=== PATIENT | male | born 1960 | race Caucasian/White ===

== ENCOUNTER 2024-04-21 12:35 | Emergency (ER) | payer MEDICARE, OTHER, SELFPAY ==
[2024-04-21 12:38] VITALS: BP 127/78
[2024-04-21 13:12] VITALS: BMI 20.8
[2024-04-21 13:23] VITALS: BP 116/83
[2024-04-21 13:34] LABS: % Basophils 0.7 % (0-2); % Eosinophils 5.2 % (0-6); % Immature Granulocytes 0.4 % (0-0.5); % Lymphocytes 22.5 % (20.5-51.1); % Monocytes 8.7 % (1.7-9.3); % Neutrophils 62.5 % (42.2-75.2); Absolute Basophils 0.1 10^3/uL (0-0.2); Absolute Eosinophils 0.4 10^3/uL (0-0.7); Absolute Lymphocytes 1.9 10^3/uL (1.2-3.4); Absolute Monocytes 0.7 10^3/uL (0.1-0.6); Absolute Neutrophils 5.3 10^3/uL (1.4-6.5); Hematocrit 39.6 % (39.0-52.0); Hemoglobin 13.9 g/dL (13.0-18.0); Mean Corp Hgb Conc. 35.1 g/dL (33.0-37.0); Mean Corpuscular Hgb 34.2 pg (27.0-31.0); Mean Corpuscular Volume 97.5 fL (80.0-94.0); Mean Platelet Volume 9.9 fL (7.4-10.4); Nucleated Red Blood Cells % 0 % (-); Platelet Count 195 10^3/uL (130-400); Red Blood Cell Count 4.06 10^6/uL (4.70-6.10); Red Cell Dist. Width 11.9 % (11.5-14.5); White Blood Cell Count 8.5 10^3/uL (4.8-10.8)
--- NOTE | 2024-04-21 13:39 | ED.MUSCINJ ---
HPI-Injury
General
Chief Complaint: Musculo-Skeletal Complaint
Source: patient
Exam Limitations: none
Time Seen by Provider: 04/21/24 13:16
History of Present Illness-Injury
Initial Injury comments:
63-year-old male HIV-positive with history of bronchiectasis and JG infection presents complaining of left scapular pain for several days that he feels when he coughs or takes deep breath. He also notes a low-grade temperature. He states his
temperatures been 99.6. He denies hemoptysis. He is on several antibiotics for his JG infection. No known injury. Pain does not radiate down the arms. No significant chest pain. No recent travel. No leg swelling or calf pain. No other
complaints at this time.
Phy Exam
Physical Exam
Physical Exam:
General: Well-appearing male no acute respiratory distress
HEENT: Normocephalic atraumatic neck is supple
Heart: Regular rate and rhythm no murmurs
Lungs: Clear no obvious wheeze or rales
Extremities: No cyanosis or edema skin: Warm no rash
Injury Course
Orders/Labs/Results
Orders:
Orders
04/21/24 13:24
CMP [Comprehensive Metabolic Panel] Urgent
Complete Blood Count/With Diff Urgent
04/21/24 13:25
COVID-19 Antigen Urgent
Source: Nasal Swab
04/21/24 13:34
CT Chest Pe Study Urgent
Comment:
Reason For Exam: left scapular painn, history of JG, bronchiectasi
Abnormal Lab Results
04/21/24
13:24
RBC 4.06 L 10^6/uL
(4.70-6.10)
MCV 97.5 H fL
(80.0-94.0)
MCH 34.2 H pg
(27.0-31.0)
Absolute Monos (auto) 0.7 H 10^3/uL
(0.1-0.6)
Glucose 154 H mg/dl
(70-99)
Total Bilirubin 1.7 H mg/dl
(0.2-1.3)
04/21/24 13:24
04/21/24 13:24
MDM/Problems Addressed
Differential Diagnosis Includes:
Left scapular pain worse with coughing and breathing. Considered PE versus pneumonia versus musculoskeletal strain. Patient has other medical issues affecting today's care including history of HIV, bronchiectasis, Mycobacterium infection. Will
check labs. PE study ordered secondary to discomfort.
*Critical Care Note
Total Time (30-74mins, 75-104mins- exclusive of procedures): Not Applicable
Update Note
Update Note:
PE study negative for pulmonary embolism. There is groundglass appearance to the right hilum. Patient does have history of bronchiectasis and JG. He is nontoxic with normal white count afebrile here. Would not suggest any acute change. Patient
reassured he is stable for discharge
ED Attending Note
-
Portions of this chart may have been created with voice recognition software.� Occasional wrong word or��sound alike� substitutions may have occurred due to the inherent limitations of voice recognition software.
Discharge Plan
Departure
Patient Disposition: Home (Routine Discharge)
Date of Disposition: 04/21/24
Time of Disposition: 16:29
Patient with high blood pressure during this ER visit?: No
Discharge Problem:
Pain in scapula
Instructions: Muscle and Bone Pain (DC)
Referrals:
Carmen-Keila Maki MD [Family Provider] -
Activity Restrictions/Additional Instructions:
Continue current medication regimen. Return if worse otherwise follow-up with your treating physicians
Interventions
Interventions:
*Risk Screen - Suicide Last Done: 04/21/24 13:12
*General Assessment Last Done: 04/21/24 13:12
*Neglect/Abuse Screening Last Done: 04/21/24 13:12
ED- Fall Risk Assessment Last Done: 04/21/24 13:35
*ED COVID-19 Vaccine History Last Done: 04/21/24 13:12
ED-Musculoskeletal Assessment Last Done: 04/21/24 13:34
Discharge Date and Time
Print Language: TURKMEN
[2024-04-21 13:51] LABS: COVID-19 Antigen Negative (Negative)
[2024-04-21 13:53] LABS: ALT (SGPT) 28 U/L (0-50); AST (SGOT) 31 U/L (17-59); Albumin 4.6 g/dl (3.5-5.0); Alkaline Phosphatase 86 U/L (38-126); Blood Urea Nitrogen 20 mg/dl (9-20); Calcium 9.3 mg/dl (8.4-10.2); Carbon Dioxide 27 mmol/L (22-30); Chloride 103 mmol/L (98-107); Estimated Creatinine Clearance 83 ml/min; Glucose 154 mg/dl (70-99); Sodium 139 mmol/L (135-145); Total Bilirubin 1.7 mg/dl (0.2-1.3); Total Protein 7.4 g/dl (6.3-8.2); eGFR > 60.00
[2024-04-21 14:00] VITALS: BP 122/82
[2024-04-21 16:28] VITALS: BP 115/77
== END 2024-04-21 16:44 | disposition home or self-care (01) ==
LOC: EMR 12:35
PROVIDERS: Physician Assistant; EMERGENCY PHYSICIAN Emergency Medicine; FAMILY PHYSICIAN Family Medicine
DX: M25.512 Pain in left shoulder (principal); Z21 Asymptomatic human immunodeficiency virus [HIV] infection status
CPT/HCPCS: 99284; 71275; 80053; 85025; 87811; Q9967

== ENCOUNTER 2024-07-07 12:28 | Observation (INO) | payer MEDICARE, SELFPAY ==
[2024-07-07] VITALS (8 sets, daily range): BP systolic 93–130; BP diastolic 59–75; BMI 20.9; BMI 20.4
--- NOTE | 2024-07-07 09:00 | ED.GENMED ---
History of Present Illness
General
Chief Complaint: Back Pain
Source: patient
Exam Limitations: none
Time Seen by Provider: 07/07/24 08:46
Nursing documentation reviewed up to this point in time: agreed with
History of Present Illness
History of Present Illness:
63 y/o M
h/o HIV on therapy CD4>400, VL undetectable
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
bronchiectasis
kidney stones
here with R sided back pain nonradiating worse with changing position x 3 dyas
thought it was muscular
taking motrin 200 mg with some mild temporary relief
has felt warm and then had chills overnight and took temp and was 102 thi smorning
no tylenol taken
hasn't had a cough worse than usual but hasn't been able to cough noramlly because of the pain
he does have chornic cough from bronchiectasis
all of his specialists, pulm, ID are in [place]
he has not had cp, sob, abdominal pain, urinary symptoms, diarrhea, nausea, vomiting
Phy Exam
Physical Exam
Physical Exam:
GENERAL: Alert thin, emaciated
EYE: pupils equal and reactive
NECK: Supple
ENT: o/p clr, mmm.
CARDIAC: Mild tachycardia, no murmur
LUNGS: Clear breath sounds bilaterally, no acute respiratory distress, no wheezes/rales/rhonchi
Back: No rash, no specific tenderness to his scapula or CVA region patient has very significant pain with movement of his trunk/back specifically flexion and extension, negative straight leg raise
ABDOMEN: Soft, without focal tenderness, no r/g, no cvat, normal bowel sounds
NEUROLOGICAL: Alert and oriented, no focal neuro deficits
SKIN: Warm and dry, skin intact.
MUSCULOSKELETAL: No edema, well perfused. neg randy's sign
PSYCH: Normal and appropriate interaction.
Course
Orders/Labs/Results
Orders:
Orders
10/03/24 08:58
0.9% Sodium Chloride 1000 ml [Nss] 1,000 ml IV BOLUS
Acetaminophen [Tylenol] 650 mg PO NOW STA
HYDROmorphone [Dilaudid] 0.5 mg IV NOW STA
07/07/24 08:59
CR Chest - 2 Views Urgent
Comment: bronchiectasis; JG
Reason For Exam: R sided back pain, fever; HIV
07/07/24 10:05
Complete Blood Count/With Diff Urgent
Comprehensive Metabolic Panel Urgent
Lactic Acid Q4H
Comment: CANCEL 2nd LACTIC ACID IF 1st LACTIC ACID IS LESS THAN 2
Lipase Urgent
Urinalysis Reflex To Culture Urgent
Date Specimen was Collected: 07/07/24
Time Specimen was Collected: 10:02
Urine Microscopic Reflex Cult Urgent
Blood Culture Urgent
SAUL Source: Blood/Venous
Specimen Description:
Blood Culture Urgent
SAUL Source: Blood/Venous
Specimen Description:
07/07/24 10:52
CT Chest Pe Study Urgent
Comment:
Reason For Exam: R back pain with breathing, fever, hIV
07/07/24 10:53
Add On- LAB Urgent
Tests Added?: cd4 count
07/07/24 11:10
Influenza A+B Rapid Molecular Urgent
SAUL Source: Nasal Swab
Specimen Description:
07/07/24 11:11
COVID-19 Antigen Urgent
Source: Nasal Swab
07/07/24 11:31
Piperacillin/Tazo 4.5 Gram [Zosyn] 4.5 gram in 100 ml IV NOW
07/07/24 11:44
Vancomycin [Vancocin] 1,500 mg 0.9% Sodium Chloride [Nss] 20 ml 0.9% Sodium Chloride 250 ml [Nss] 250 ml IV NOW
07/07/24 12:15
Admit/Transfer Patient As Directed
Co-Sign Provider:
Level of Care: Observation services
Assign to:: Medical/Surgical
Physician / Group: clayton santiago
Diagnosis: cap
Reason for Hospitalization: pna in immunocompromised
Expected length of stay greater than two midnights?: No
ELOS- Estimated Length of Stay in days: 1
I certify the patient meets the requirements for IP care: No
07/07/24 12:16
PRN Pain Medication Management As Directed
May give lesser potent ordered pain med per pt: Yes
preference::
Protocol:: Medication orders for pain may be administered in a
manner that supports deferring to patient preference
when the pt is:
- Requesting an ordered lesser potent pain medication.
Least to most potent pain medications are defined
as: acetaminophen < NSAID < tramadol < opioids
(morphine, oxycodone, hydromorphone).
- Requesting a lesser dose of the same medication IF
ORDERED.
- Requesting a less intrusive route of administration
if both routes are prescribed by the provider (PO <
IV).
07/07/24 12:55
CD4 Leukocyte Marker Profile [S] Routine
Abnormal Lab Results
07/07/24
10:05
RBC 3.45 L 10^6/uL
(4.70-6.10)
Hgb 11.9 L g/dL
(13.0-18.0)
Hct 33.8 L %
(39.0-52.0)
MCV 98.0 H fL
(80.0-94.0)
MCH 34.5 H pg
(27.0-31.0)
Absolute Neuts (auto) 7.4 H 10^3/uL
(1.4-6.5)
Neutrophils % 78.2 H %
(42.2-75.2)
Lymphocytes % 13.1 L %
(20.5-51.1)
Glucose 138 H mg/dl
(70-99)
Total Bilirubin 1.9 H mg/dl
(0.2-1.3)
Urine Ketones Trace A
(Negative)
Urine Bilirubin 1+ A
(Negative)
Urine Urobilinogen 2+ A
(Neg - 1+)
Leukocyte Esterase Rfl Trace A
(Negative)
Urine Bacteria (Reflex) Few A
(Negative)
07/07/24 10:05
07/07/24 10:05
Vital Signs
Initial and Last Documented VS:
Initial Vital Signs
Temp Pulse Resp BP Pulse Ox
101.1 F H 107 18 130/75 98
07/07/24 08:43 07/07/24 08:43 07/07/24 08:43 07/07/24 08:43 07/07/24 08:43
Last Documented Vital Signs
Temp Pulse Resp BP Pulse Ox
101.1 F H 107 18 114/70 94
07/07/24 08:43 07/07/24 08:43 07/07/24 08:43 07/07/24 10:19 07/07/24 10:19
MDM/Problems Addressed
MDM/Problems Addressed:
63 y/o M
HIV pos on HAART, cd4 last 400s; managed by ID in [place]
JG on abx x 1.5 years
Bronchiectasis
4 days R back pain worse with movement and coughing; fever since last night 102 this am at home
no inc cough from baselin but he isn't able to cough because of pain
he def does splint slightly but is not tachypneic or hypoxic; normal bp
wbc with left shift, urine bili but not infected; mild t bili elevation, lactic normal
cxr looks like multifocal pna; with his hiv and his pleuritic pain, i was getting CT scan with contrast, r/o PE/abscess;
covid and flu neg
broad spectrum abx due to HIV/bronchiectasis
admit
PE study neg
*Critical Care Note
Total Time (30-74mins, 75-104mins- exclusive of procedures): Not Applicable
ED Attending Note
-
Portions of this chart may have been created with voice recognition software.� Occasional wrong word or��sound alike� substitutions may have occurred due to the inherent limitations of voice recognition software.
Discharge Plan
Departure
Patient Disposition: Admit
Date of Disposition: 07/07/24
Time of Disposition: 10:53
Admit to: Med/Surg
Presentation/result/management discussed w/ accepting MD/DO: Hospitalist
Condition: Fair
Covid-19: Not Applicable
Discharge Problem:
Multifocal pneumonia, HIV positive
Interventions
Interventions:
*Risk Screen - Suicide Last Done: 07/07/24 08:43
*General Assessment Last Done: 07/07/24 10:15
*Neglect/Abuse Screening Last Done: 07/07/24 08:43
ED- Fall Risk Assessment Last Done: 07/07/24 10:15
ED-Musculoskeletal Assessment Last Done: 07/07/24 10:15
[2024-07-07] MEDS: TYLENOL 650 MG PO (09:23)
[2024-07-07] MEDS: DILAUDID 0.5 MG IV ×2 (09:40→17:57)
[2024-07-07] MEDS: NSS 1000 IV (09:41)
[2024-07-07 10:21] LABS: % Basophils 0.4 % (0-2); % Eosinophils 1.3 % (0-6); % Immature Granulocytes 0.3 % (0-0.5); % Lymphocytes 13.1 % (20.5-51.1); % Monocytes 6.7 % (1.7-9.3); % Neutrophils 78.2 % (42.2-75.2); Absolute Eosinophils 0.1 10^3/uL (0-0.7); Absolute Lymphocytes 1.2 10^3/uL (1.2-3.4); Absolute Monocytes 0.6 10^3/uL (0.1-0.6); Absolute Neutrophils 7.4 10^3/uL (1.4-6.5); Hematocrit 33.8 % (39.0-52.0); Hemoglobin 11.9 g/dL (13.0-18.0); Mean Corp Hgb Conc. 35.2 g/dL (33.0-37.0); Mean Corpuscular Hgb 34.5 pg (27.0-31.0); Mean Platelet Volume 9.4 fL (7.4-10.4); Nucleated Red Blood Cells % 0 % (-); Platelet Count 198 10^3/uL (130-400); Red Blood Cell Count 3.45 10^6/uL (4.70-6.10); Red Cell Dist. Width 11.8 % (11.5-14.5); White Blood Cell Count 9.4 10^3/uL (4.8-10.8)
[2024-07-07 10:24] LABS: Urine Albumin Trace (Neg - Trace); Urine Bilirubin 1+ (Negative); Urine Character Clear (Clear); Urine Glucose Negative (Negative); Urine Ketone Trace (Negative); Urine Leukocyte Trace (Negative); Urine Nitrite Negative (Negative); Urine Occult Blood Negative (Negative); Urine Specific Gravity 1.015 (<1.030); Urine Urobilinogen 2+ (Neg - 1+)
[2024-07-07 10:28] LABS: Urine Color Orange
[2024-07-07 10:41] LABS: ALT (SGPT) 29 U/L (0-50); AST (SGOT) 25 U/L (17-59); Albumin 3.9 g/dl (3.5-5.0); Alkaline Phosphatase 97 U/L (38-126); Blood Urea Nitrogen 11 mg/dl (9-20); Calcium 8.8 mg/dl (8.4-10.2); Carbon Dioxide 22 mmol/L (22-30); Chloride 102 mmol/L (98-107); Estimated Creatinine Clearance 74 ml/min; Glucose 138 mg/dl (70-99); Lipase 105 U/L (23-300); Sodium 139 mmol/L (135-145); Total Bilirubin 1.9 mg/dl (0.2-1.3); Total Protein 6.7 g/dl (6.3-8.2); eGFR > 60.00
[2024-07-07 10:56] LABS: Urine Mucus Few; Urine Red Blood Cell 0-2 /HPF (0-2); Urine White Cell 0-2 /HPF (0-5)
[2024-07-07 10:59] LABS: Urine Bacteria Few (Negative); Urine Hyaline Cast 0-2 /LPF (0-2); Urine Squamous Cell 0-2 /LPF (Few)
[2024-07-07 11:33] LABS: COVID-19 Antigen Negative (Negative)
[2024-07-07] MEDS: ZOSYN 100 IV (11:47)
--- NOTE | 2024-07-07 13:01 | CON.ID ---
Consultation
-
Date/Time Consultation Requested: 07/07/2024 1127
Date/Time Consultation Performed: 07/07/2024 1230
Requesting Provider: Dr. Fong
Performing Provider: Dr. De Anda
Reason for Consultation: Pneumonia
Chief Complaint / Past History
History of Present Illness
Dell Carias is a 63-year-old man being evaluated at the request of Dr. Fong in regards to pneumonia. History is obtained from chart review, along with patient interview. Additional history was obtained from the patient's who was present
at the bedside.
The patient has an underlying history of HIV (VL undetectable, CD4 >400; Gracie/Kaylin), bronchiectasis and JG, for which he has been on treatment for the past 18 months (Azithromycin/ETH/RIF).
He reports he was in his usual state of health until earlier this week when he began to develop some right sided posterior thorax pain. He noted that it became worse with movement, like a 'squeezing' feeling. He reports trying Motrin, but received
little relief. Last p.m., he developed fevers to 102.7 and presented to the emergency room for further evaluation.
Workup in the ER did not reveal leukocytosis, but he did have a left shift. A chest x-ray showed a right lower lobe infiltrate, and CT imaging showed nodular consolidations surrounding groundglass opacities suggestive of multifocal pneumonia.
Infectious Diseases is asked to comment upon further antimicrobial therapy.
At this point in time he notes a little sputum production. He denies any nausea or vomiting. He denies any headache or abdominal pain. There has been no history of travel. There are no pets in the house. He reports that his partner had COVID in
mid June. The patient had COVID testing at that point in time which remained negative.
The patient has an underlying history of JG and has been treated by his Infectious Diseases provider for the past 18 months or so. He reports that he has had recent negative sputum cultures. He has been on Azithromycin, ethambutol along with
rifampin. He is tolerating the medications without issue.
In regards to HIV, he reports that he was diagnosed in 1988. He has been on Tivicay and Descovy for quite some time and maintains an undetectable viral load and a CD4 count in the 450 range. He is routinely followed by Dr. Jesus Alberto Whitman in [facility]
[place] ([phone])
Past History
Additional Past Medical History:
HIV
Adrenal insufficiency
Asthma
JG
Bronchiectasis
Remote Hx (L) eye CMV
Additional Past Surgical History:
Left wrist surgery
Allergy History:
Sulfa (Sulfonamide Antibiotics) Allergy (Verified 07/07/24 08:45)
Rash
Medications Reviewed: Yes
Current Antibiotics:
Zosyn
Vancomycin (not given yet)
OP meds:
Tivicay/Descovy
Azithromycin/ethambutol/rifampin
Social History
Tobacco: Non-Smoker
Alcohol: Occasional
Drug: None
Personal:
Living: With Family
Employment: Retired
Family History
Family History: Not Pertinent
Review of Systems
Vital Signs
Temp Pulse Resp BP Pulse Ox
101.1 F H 107 18 114/70 94
07/07/24 08:43 07/07/24 08:43 07/07/24 08:43 07/07/24 10:19 07/07/24 10:19
Physical Exam
Physical Exam
Constitutional: No Acute Distress, Comfortable, Chronically Ill and Non-toxic
Head: Normocephalic
Eyes: Pupils Equal, Pupils Round, No Conjunctival Hemorrhage and Sclera Anicteric
Oral: No Thrush and No Ulcers
Cardiovascular: Regular Rate and S1/S2; Negative S3/S4
Pulmonary: Clear; Negative Wheezes, Rales or Rhonchi
Gastrointestinal: Soft, Non Tender, Non Distended, Normal Bowel Sounds, No Rebound and No Guarding
Extremities: Negative Edema, Cyanosis or Erythema
Musculoskeletal: Negative Joint Swelling or Joint Effusion
Skin: Warm and Dry; Negative Rash or Jaundice
Neurological: Awake and Alert
Psychological: Calm
Lab / Diagnostic Study Results
07/07/24 10:05
07/07/24 10:05
Abs Immat Gran (auto) 0.0 10^3/uL (0-0.05) 07/07/24 10:05
Absolute Neuts (auto) 7.4 10^3/uL (1.4-6.5) H 07/07/24 10:05
Absolute Lymphs (auto) 1.2 10^3/uL (1.2-3.4) 07/07/24 10:05
Absolute Monos (auto) 0.6 10^3/uL (0.1-0.6) 07/07/24 10:05
Absolute Basos (auto) 0.0 10^3/uL (0-0.2) 07/07/24 10:05
Immature Gran % 0.3 % (0-0.5) 07/07/24 10:05
Neutrophils % 78.2 % (42.2-75.2) H 07/07/24 10:05
Lymphocytes % 13.1 % (20.5-51.1) L 07/07/24 10:05
Monocytes % 6.7 % (1.7-9.3) 07/07/24 10:05
Eosinophils % 1.3 % (0-6) 07/07/24 10:05
Basophils % 0.4 % (0-2) 07/07/24 10:05
Lactic Acid Cancelled 07/07/24 13:00
Ur Squamous Epith Cells 0-2 /LPF (Few) 07/07/24 10:05
Microbiology Results
Micro:
07/07/24 11:10 Influenza Types A & B (ALYCIA) - Final
Nasal Swab Negative for Influenza A & B, NAAT
Negative results must be combined with clinical observations
and patient history.
Nucleic Acid Amplification test (NAAT)performed on the
[employer] ID NOW platform.
07/07/24 10:05 Blood Culture - Pending
Blood/Venous
07/07/24 10:05 Blood Culture - Pending
Blood/Venous
Imaging:
07/07/2024 CTA chest: No filling defects in the central pulmonary arteries to suggest PE. Nodular consolidations with surrounding groundglass opacities involving bilateral lower lobes and right upper lobe consistent with multifocal pneumonia.
Borderline enlarged right hilar lymph nodes; likely reactive. Please see full dictation for additional detail. Film personally viewed.
07/07/2024 CXR (2 view): Airspace opacities within the right lower lobe and lingula, likely multifocal pneumonia.
Assessment / Plan
Back pain (pleuritic)
Fever
Suspected PNA
- possible post-viral given history
Bronchiectasis
JG; currently on 3 drug therapy
HIV; stable on current antiretroviral therapy
Hx adrenal insufficiency
Asthma
Recommendations:
Continue with Zosyn for the present.
Hold on Vanco for now. Check screening MRSA PCR; if positive will initiate vancomycin. If negative, low likelihood of MRSA as an etiology.
Continue current antiretroviral therapy.
Follow clinical exam.
Follow for improvement / change in pleuritic chest discomfort.
Continue current 3 drug therapy for underlying JG.
Check sputum culture.
Follow white count and temperature curve.
I have reached out to pt's ID physician and given my contact info.
Care Review
Plan reviewed with: Physician (Hospitalist) and Other Provider (ER)
--- NOTE | 2024-07-07 13:44 | HPS.HSE ---
Family Physician
-
Family Physician: * NONE
Chief Complaint
-
back paun - right thoracic
History of Present Illness
63 male history of HIV CD4 count greater than 400, bronchiectasis and JG, adrenal insufficiency, asthma, CMV retinitis left eye, presenting with severe back pain/right-sided posterior back pain worse with movement, taking a deep breath coughing,
described as a squeezing feeling, little relief with Motrin, fever 102.7.
States his partner had COVID on , he did a COVID test and was negative and was wondering if this could be something of that.
Past medical history HIV adrenal insufficiency asthma JG bronchiectasis CMV retinitis left eye
Past surgical history left wrist surgery
Allergy history sulfa
Non-smoker drinks alcohol occasionally no drug use lives with family
Medical History
Past Medical History
Past Medical History: Reports Other
Additional Past Medical History:
hiv
Past Surgical History: Reports Orthopedic
Social History
Tobacco: Non-smoker
Family History
Family History: Other
Allergies / Home Medications
Allergies reflects when Allergies were last updated in [facility].
Home Medications with original date entered in [facility]
Allergy/Medication List:
Allergies
Allergy/AdvReac Type Severity Reaction Status Date / Time
Sulfa (Sulfonamide Allergy Rash Verified 07/07/24 08:45
Antibiotics)
Home Medications
Lactobac no.2-Bifidobac no.1-S. thermo 112.5 billion cell capsule (Visbiome) 1 cap PO QPM 07/07/24
ascorbic acid (vitamin C) 500 mg tablet (Vitamin C) 500 mg PO DAILY 07/07/24
azithromycin 500 mg tablet 500 mg PO HS 07/07/24
dolutegravir 50 mg tablet (Tivicay) 50 mg PO BID 07/07/24
emtricitabine 200 mg-tenofovir alafenamide fumarate 25 mg tablet (Descovy) 1 tab PO QPM 07/07/24
ethambutol 400 mg tablet 1,000 mg PO DAILY 07/07/24
evening primrose oil 500 mg capsule 500 mg PO QPM 07/07/24
ezetimibe 10 mg tablet (Zetia) 10 mg PO QPM 07/07/24
finasteride 1 mg tablet 1 mg PO QPM 07/07/24
fluticasone 250 mcg-salmeterol 50 mcg/dose blistr powdr for inhalation (Advair Diskus) 1 inh inhalation R BID 07/07/24
garlic 400 mg tablet 400 mg PO QPM 07/07/24
glucosamine sulf dipot chlr,msm,chond 550 mg-C 30 mg-moses 1 mg capsule (Glucosamine Chondroitin) 1 cap PO MOWEFR 07/07/24
hydrocortisone 5 mg tablet 5 mg PO QPM 07/07/24
hydrocortisone 5 mg tablet 15 mg PO DAILY 07/07/24
ibuprofen 200 mg tablet (Advil) 200 mg PO Q6HPRN PRN mild pain 07/07/24
milk thistle 175 mg tablet 175 mg PO HS 07/07/24
oregano oil 1,500 mg capsule 1,500 mg PO QPM 07/07/24
rifampin 300 mg capsule 300 mg PO QPM 07/07/24
turmeric 400 mg capsule 400 mg PO DAILY 07/07/24
vitamin B complex 1 tab PO QPM 07/07/24
vitamin E 268 mg (400 unit) capsule 268 mg PO HS 07/07/24
vitamin K2 100 mcg capsule 100 mcg PO HS 07/07/24
Review of Systems
-
A 12 point ROS was completed and negative except as noted: No
Physical Exam
Vital Signs
Vital Signs
Temp Pulse Resp BP Pulse Ox
101.1 F H 77 23 103/63 95
07/07/24 08:43 07/07/24 13:15 07/07/24 13:15 07/07/24 13:03 07/07/24 13:15
Physical Exam
General: No Apparent Distress and Comfortable
Laboratory Results
-
07/07/24 10:05
07/07/24 10:05
Laboratory Results
Lactic Acid Cancelled 07/07/24 13:00
Total Bilirubin 1.9 mg/dl (0.2-1.3) H 07/07/24 10:05
AST 25 U/L (17-59) 07/07/24 10:05
ALT 29 U/L (0-50) 07/07/24 10:05
Alkaline Phosphatase 97 U/L (38-126) 07/07/24 10:05
Lipase 105 U/L (23-300) 07/07/24 10:05
Impression/Plan
-
Physical exam
NAD, resting comfortably in bed, nontoxic, chronically ill-appearing
Scleral anicteric
Moist mucous membranes
No JVD
CTA bilateral
Normal S1-S2 no murmurs
Soft nontender nondistended bowel sounds active
No peripheral pitting edema
Moves extremities spontaneously
AAOx3
Assessment and plan
Pneumonia�CAP versus postviral
-Broad-spectrum antibiotics
-Legionella strep pneumo sputum culture blood culture
-Maintain SpO2 greater than 90%
-Reported CD4 greater than 400 therefore no indication to cover for opportunistic infections as CD4 count is not less than 200
Pleuritic chest discomfort
As back pain, worse with breathing and coughing movement, right-sided
Can give lidocaine patch however would expect as infection clears for this to improve
Bronchiectasis
JG
Continue 3 drug therapy
HIV
Without evidence of opportunistic infection especially if CD4 count greater than 200
Continue HAART therapy
Adrenal insufficiency history
Continue hydroxy cortisone ampm dosage
If decompensates may need to provide stress dose steroids
Asthma
Continue MDIs
[2024-07-07] MEDS: LOVENOX 30 MG SC (17:54)
[2024-07-07] MEDS: VISBIOME 1 CAP PO (17:55)
[2024-07-07] MEDS: RIFADIN 300 MG PO (17:55)
[2024-07-07] MEDS: ZETIA 10 MG PO (17:55)
[2024-07-07] MEDS: B COMPLEX w/VITAMIN C 1 CAPLET PO (17:55)
[2024-07-07] MEDS: HYDROCORTONE/CORTEF 10 MG PO (17:55)
[2024-07-07] MEDS: NON-FORMULARY ITEM 1 TABLET PO (17:56)
[2024-07-07] MEDS: ADVAIR HFA 115/21 MCG INHALER 2 PUFF INH (19:29)
[2024-07-07] MEDS: TIVICAY 50 MG PO (20:41)
[2024-07-08 07:17] VITALS: BP 114/48
[2024-07-08] MEDS: ADVAIR HFA 115/21 MCG INHALER 2 PUFF INH (07:46)
[2024-07-08] MEDS: HYDROCORTONE/CORTEF 10 MG PO (08:10)
[2024-07-08] MEDS: MYAMBUTOL 1000 MG PO (08:10)
[2024-07-08] MEDS: TIVICAY 50 MG PO (08:14)
[2024-07-08] MEDS: DILAUDID 0.5 MG IV ×2 (08:17→12:18)
--- NOTE | 2024-07-08 09:54 | W.PN.HOSP.TC ---
Today's Communication/Plan
-
.
Assessment / Plan
Assessment / Plan
Physical exam
NAD, resting comfortably in bed, nontoxic, chronically ill-appearing
Scleral anicteric
Moist mucous membranes
No JVD
CTA bilateral
Normal S1-S2 no murmurs
Soft nontender nondistended bowel sounds active
No peripheral pitting edema
Moves extremities spontaneously
AAOx3
Assessment and plan
Pneumonia�CAP versus postviral
Discussed with infectious disease agree with discharge on cefdinir 300 mg twice a day x 7 days
Pleuritic chest discomfort
As back pain, worse with breathing and coughing movement, right-sided
Can give lidocaine patch however would expect as infection clears for this to improve
Bronchiectasis
JG
Continue 3 drug therapy
HIV
Without evidence of opportunistic infection especially if CD4 count greater than 200
Continue HAART therapy
Adrenal insufficiency history
Continue hydroxy cortisone ampm dosage
If decompensates may need to provide stress dose steroids
Asthma
Continue MDIs
Will need outpatient infectious disease follow-up along with PCP follow-up
Anticipated Discharge: Today
Subjective/Interval History
-
Date of Service: July 08, 2024
Seen and examined. No new complaints. No acute overnight events.
Continues to have some back pain however improved. Understands follow-up resolved or go away completely until his pneumonia resolves.
Objective Data
-
Vital Signs:
Vital Signs
Temp Pulse Resp BP Pulse Ox
98.3 F 88 20 114/48 92
07/08/24 07:17 07/08/24 07:45 07/08/24 07:45 07/08/24 07:17 07/08/24 07:17
I&O
07/07/24 07/08/24 07/09/24
06:59 06:59 06:59
Intake Total 120 / 120
Balance 120 / 120
--- NOTE | 2024-07-08 10:03 | W.DCSUMMARY ---
Discharge Summary
Discharge Data
Date of Admission: 07/07/24
Date of Discharge: 07/08/24
-
Pending Results: No
Hospital Course
63 M History of HIV CD4 count greater than 400, bronchiectasis and JG, adrenal insufficiency, asthma, CMV retinitis left eye. Presented with chest discomfort/back discomfort worse with breathing. Concern for multifocal pneumonia. Treated with IV
antibiotics. Evaluated by infectious diseases recommended continuation of antibiotics. Discharged home with cefdinir 300mg BID x7days. Outpatient follow up with infectious diseases and PCP
Discharge Plan
-
Patient Disposition: Home (Routine Discharge)
Discharge Diagnosis/Procedures: Multifocal pna
History of HIV CD4 count greater than 400, bronchiectasis and JG, adrenal insufficiency, asthma, CMV retinitis left eye,
Condition: Good
Diet: As tolerated
Activity Restrictions/Additional Instructions:
Presented with chest discomfort/back discomfort worse with breathing. Concern for multifocal pneumonia. Treated with IV antibiotics. Evaluated by infectious diseases recommended continuation of antibiotics. Discharged home with cefdinir 300mg
BID x7days. Outpatient follow up with infectious diseases and PCP
Referrals:
NONE,* [Family Provider] -
Prescriptions:
New
cefdinir 300 mg capsule
300 mg PO BID 7 Days Qty: 14 0RF
Continued
hydrocortisone 5 mg Tablet
5 mg PO QPM
fluticasone propion-salmeterol [Advair Diskus] 250-50 mcg/dose Blister With Device
1 inh INHALATION R BID
rifampin 300 mg Capsule
300 mg PO QPM
ezetimibe [Zetia] 10 mg Tablet
10 mg PO QPM
Tivicay 50 mg Tablet
50 mg PO BID
hydrocortisone 5 mg Tablet
15 mg PO DAILY
evening primrose oil 500 mg Capsule
500 mg PO QPM
milk thistle 175 mg Tablet
175 mg PO HS
ascorbic acid (vitamin C) [Vitamin C] 500 mg Tablet
500 mg PO DAILY
ethambutol 400 mg Tablet
1,000 mg PO DAILY
ibuprofen [Advil] 200 mg Tablet
200 mg PO Q6HPRN PRN (Reason: mild pain)
vitamin B complex Tablet
1 tab PO QPM
vitamin E 268 mg (400 unit) Capsule
268 mg PO HS
finasteride 1 mg Tablet
1 mg PO QPM
garlic 400 mg Tablet
400 mg PO QPM
azithromycin 500 mg Tablet
500 mg PO HS
Visbiome 112.5 billion cell Capsule
1 cap PO QPM
oregano oil 1,500 mg Capsule
1,500 mg PO QPM
vitamin K2 100 mcg Capsule
100 mcg PO HS
Descovy 200-25 mg Tablet
1 tab PO QPM
turmeric 400 mg Capsule
400 mg PO DAILY
Glucosamine Chondroitin 550-30-1 mg Capsule
1 cap PO MOWEFR
Discharge Orders:
Discharge Patient (As Directed); Ordered 07/08/24
Ordered By: Jc George
Discharge Date and Time
Print Language: KOREAN
[2024-07-08 12:03] VITALS: BP 125/73
--- NOTE | 2024-07-08 12:46 | PTCARENOTE ---
Pt discharged to home, unable to get flu shot on DC. Dr wants him to finish his course of PO abx.
[2024-07-08 19:17] LABS: CD4 % of Cells Analyzed 26 % (35-68); CD4 Absolute Count 445 cells/uL (490-1600)
== END 2024-07-08 12:56 | disposition home or self-care (01) ==
LOC: 3 WEST ACU 12:28
PROVIDERS: Physician Assistant; ADMITTING PHYSICIAN Hospitalist; EMERGENCY PHYSICIAN Emergency Medicine; OTHER PHYSICIAN Internal Medicine Infectious Disease
DX: J18.8 Other pneumonia, unspecified organism (principal); M54.9 Dorsalgia, unspecified; J47.0 Bronchiectasis with acute lower respiratory infection; Z21 Asymptomatic human immunodeficiency virus [HIV] infection status; E27.40 Unspecified adrenocortical insufficiency; J45.909 Unspecified asthma, uncomplicated; I70.0 Atherosclerosis of aorta; Z87.442 Personal history of urinary calculi; Z88.2 Allergy status to sulfonamides; Z11.52 Encounter for screening for COVID-19
CPT/HCPCS: 71046; 71275; 80053; 81003; 81015; 83605; 83690; 85025; 86361; 87040; 87502; 87641; 87811; 94640; 96361; 96365; 96375; 99285; G0378; Q9967

== ENCOUNTER 2025-07-22 10:47 | Emergency (ER) | payer MEDICARE, OTHER, SELFPAY ==
[2025-07-22 10:50] VITALS: BP 131/64
--- NOTE | 2025-07-22 12:11 | ED.GENMED ---
History of Present Illness
General
Chief Complaint: Skin Problem
Source: patient
Time Seen by Provider: 07/22/25 11:33
History of Present Illness
History of Present Illness:
Note:
CHIEF COMPLAINT(S)
Swollen, throbbing, and red finger after recent renovation work.
HISTORY OF PRESENT ILLNESS
The patient is a 64-year-old male who presented with swelling, redness, and throbbing pain of the finger, appearing the day after he performed kitchen renovations last week. The patient described the discomfort as most intense at the nail bed,
particularly when pressure is applied. The patient suspects cellulitis but reports no visible puncture wounds initially. Upon examination, there is visible pus associated with a paronychia, suggesting a superficial infection likely with cuticle
involvement but no signs of deeper infection, as the pad of the finger is not tender.
The patient does not report having engaged in nail-biting behavior. The plan includes numbing the area, attempting to drain the pus, and starting antibiotics. The patient is advised to perform regular warm soaks, hourly if possible, to enhance blood
flow and aid in healing. The patient also inquired about using iodine for cleansing, which was advised to be diluted to avoid skin irritation.
PAST MEDICAL AND SURGICAL HISTORY
- HIV
CHRONIC MEDICAL CONDITIONS SIGNIFICANTLY AFFECTING CARE
The patient has a history of HIV.
MEDICATIONS
- Tivicay (dolutegravir) and Descovy (emtricitabine/tenofovir alafenamide) for HIV management. The patient reports stable CD4 counts between 400-500 and minimal viral load.
REVIEW OF SYSTEMS
- Skin: Redness, swelling, and throbbing of the finger, particularly around the nail bed.
PHYSICAL EXAM
General: Alert, no acute distress.
Skin: Warm, dry. Swelling and redness noted around the paronychia of the left digit, with no drainage observed. Normal capillary refill.
Head: Normocephalic, atraumatic.
Neck: Supple, trachea midline.
Eye, Ears, Nose, Mouth, and Throat: Oral mucosa moist.
Cardiovascular: Normal peripheral perfusion. No edema.
Respiratory: Respirations are non-labored.
Gastrointestinal: Abdomen non-distended.
Back: Normal range of motion, Normal alignment.
Musculoskeletal: Normal range of motion, normal strength. Tenderness noted to the paronychial area of the left finger, with mild surrounding swelling and redness.
Neurological: Alert and oriented to person, place, time, and situation. No focal neurological deficit observed.
Psychiatric: Cooperative, appropriate mood & affect.
PLAN
- Proceed with numbing of the affected area and attempt to incise for drainage of the purulent material.
- Start antibiotics post-procedure.
- Instruct the patient to perform warm soaks hourly for blood circulation.
- Consider diluting iodine for cleansing to prevent irritation, with warm soaks as the primary recommended intervention.
DIFFERENTIAL DIAGNOSIS
The Differential Diagnosis includes, in no particular order and is not limited to:
- Paronychia
- Cellulitis
- Subungual hematoma
- Onychomycosis
- Herpetic pritesh
- Felon
- Contact dermatitis
- Psoriasis
- Trauma
- Eczema
Disposition:
SUMMARY OF ENCOUNTER
The patient is a 64-year-old male with a history of HIV who presented with redness and swelling of the left third digit. Upon examination, he was diagnosed with paronychia without evidence of a felon. An incision and drainage procedure was
performed, leading to excellent results. The patient was prescribed antibiotics and advised on wound care, including warm compresses.
ASSESSMENT
Paronychia of the left third digit.
PLAN
- Prescribe amoxicillin-clavulanate (Augmentin) for the infection.
- Advise the patient to perform warm compresses regularly.
- Instruct the patient on proper wound care.
- Recommend return or follow-up if there is any persistence of symptoms.
PROCEDURES
Incision and drainage of the left third digit.
PATIENT EDUCATION AND COUNSELING
The patient was educated on the importance of wound care and the use of warm compresses. He was informed about the signs and symptoms that necessitate prompt follow-up.
FOLLOW-UP INSTRUCTIONS
The patient should return for follow-up if symptoms persist or worsen.
MEDICATION RECONCILIATION
- Amoxicillin-clavulanate was prescribed for the infection.
MEDICAL DECISION MAKING
-Complexity of Data Reviewed: Chronic conditions affecting care include HIV. Differential diagnoses considered included paronychia, cellulitis, subungual hematoma, herpetic pritesh, and others.
-Data:
Category 1
Clinical information was obtained from the patient regarding his symptoms and history of HIV.
Category 3
No additional discussions or consultations were mentioned.
-Risk:
Prescription medication was prescribed.
DIAGNOSIS
L03.031 - Cellulitis of finger (paronychia of finger)
Phy Exam
Physical Exam
Physical Exam:
.
Course
Vital Signs
Initial and Last Documented VS:
Initial Vital Signs
Temp Pulse Resp BP Pulse Ox
98.0 F 69 18 131/64 96
07/22/25 10:50 07/22/25 10:50 07/22/25 10:50 07/22/25 10:50 07/22/25 10:50
Last Documented Vital Signs
Temp Pulse Resp BP Pulse Ox
98.0 F 69 18 131/64 96
07/22/25 10:50 07/22/25 10:50 07/22/25 10:50 07/22/25 10:50 07/22/25 10:50
Procedures
Incision/Drainage/Joint Aspiration
Left Finger:
Anethesia: 1% Lidocaine and Added Na bicarb to local
Type of procedure: incise and drain
Nature of site: abscess
Description of abscess: less than 3cm
Loculations broken up: No
How much fluid was obtained?: small amount
Fluid description: purulent
Treatment: left open for drainage
Additional information:
DIgital block performed at L 3rd digit.
*Pulse Oximetry
SaO2: 96
Oxygen Mode of Delivery: Room air
Patient hypoxic: no
*Critical Care Note
Total Time (30-74mins, 75-104mins- exclusive of procedures): Not Applicable
ED Attending Note
-
Portions of this chart may have been created with voice recognition software.� Occasional wrong word or��sound alike� substitutions may have occurred due to the inherent limitations of voice recognition software.
Discharge Plan
Departure
Patient Disposition: Home (Routine Discharge)
Date of Disposition: 07/22/25
Time of Disposition: 12:11
Patient with high blood pressure during this ER visit?: No
Discharge Problem:
Paronychia
Instructions: Paronychia
Prescriptions:
New
amoxicillin-pot clavulanate 875-125 mg tablet
1 tab PO BID Qty: 14 0RF
No Action
hydrocortisone 5 mg Tablet
5 mg PO QPM
fluticasone propion-salmeterol [Advair Diskus] 250-50 mcg/dose Blister With Device
1 inh INHALATION R BID
rifampin 300 mg Capsule
300 mg PO QPM
ezetimibe [Zetia] 10 mg Tablet
10 mg PO QPM
Tivicay 50 mg Tablet
50 mg PO BID
hydrocortisone 5 mg Tablet
15 mg PO DAILY
evening primrose oil 500 mg Capsule
500 mg PO QPM
milk thistle 175 mg Tablet
175 mg PO HS
ascorbic acid (vitamin C) [Vitamin C] 500 mg Tablet
500 mg PO DAILY
ethambutol 400 mg Tablet
1,000 mg PO DAILY
ibuprofen [Advil] 200 mg Tablet
200 mg PO Q6HPRN PRN (Reason: mild pain)
vitamin B complex Tablet
1 tab PO QPM
vitamin E 268 mg (400 unit) Capsule
268 mg PO HS
finasteride 1 mg Tablet
1 mg PO QPM
garlic 400 mg Tablet
400 mg PO QPM
azithromycin 500 mg Tablet
500 mg PO HS
Visbiome 112.5 billion cell Capsule
1 cap PO QPM
oregano oil 1,500 mg Capsule
1,500 mg PO QPM
vitamin K2 100 mcg Capsule
100 mcg PO HS
Descovy 200-25 mg Tablet
1 tab PO QPM
turmeric 400 mg Capsule
400 mg PO DAILY
Glucosamine Chondroitin 550-30-1 mg Capsule
1 cap PO MOWEFR
cefdinir 300 mg capsule
300 mg PO BID 7 Days Qty: 14 0RF
Referrals:
NONE,* [Family Provider, Internal Medicine]
Activity Restrictions/Additional Instructions:
Apply warm compresses aggressively as discussed. Return for increased redness, increased swelling or any other concerns.
Interventions
Interventions:
*Risk Screen - Suicide Last Done: 07/22/25 10:50
*General Assessment Last Done: 07/22/25 10:50
*Neglect/Abuse Screening Last Done: 07/22/25 10:50
*ED- Fall Risk Assessment Last Done: 07/22/25 10:50
*ED COVID-19 Vaccine History Last Done: 07/22/25 10:50
*ED Influenza Vaccine History Last Done: 07/22/25 10:50
Discharge Date and Time
Print Language: CUBAN
[2025-07-22] MEDS: AUGMENTIN 875 MG/125 MG 1 TABLET PO (12:39)
== END 2025-07-22 13:00 | disposition home or self-care (01) ==
LOC: EMR 10:47
PROVIDERS: EMERGENCY PHYSICIAN Emergency Medicine
DX: L03.012 Cellulitis of left finger (principal); Z21 Asymptomatic human immunodeficiency virus [HIV] infection status
CPT/HCPCS: 99283; 26010